=== PATIENT | male | born 1965 | race Caucasian/White ===

== ENCOUNTER 2017-01-25 11:37 | Emergency (ER) | payer BC ==
[2017-01-25] MEDS ORDERED: Bupivacaine 0.5% 30 ML SDV INFILT ONE (11:38)
--- NOTE | 2017-01-25 12:05 | EDM.PDOC ---
ED HPI GENERAL MEDICAL PROBLEM - General Chief Complaint: Upper Extremity Injury/Pain Stated Complaint: RT THUMB Time Seen by Provider: 01/25/17 11:44 Source of Information: Reports: Patient History Limitations: Reports: No Limitations - History of Present Illness INITIAL COMMENTS - FREE TEXT/NARRATIVE: 51 y.o.w.m came to the ed 1 week after he injured his r thumb. Mechanism of injury is not known. Limited ROM of r thumb due to pain and swelling, no other acute medical issues at this time, no DM. 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 - Related Data Allergies Allergy/AdvReac Type Severity Reaction Status Date / Time No Known Allergies Allergy Verified 01/25/17 11:42 Home Meds: Home Meds Acetaminophen/HYDROcodone [Beryl 325-5 MG] 1 tab PO Q4H PRN #16 tablet 01/25/17 [Rx] Cephalexin [Keflex] 500 mg PO Q6HR #40 capsule 01/25/17 [Rx] Ibuprofen 600 mg PO ASDIRECTED PRN 01/25/17 [History] Past Medical History - Past Health History Medical/Surgical History: Denies Medical/Surgical History Social & Family History - Tobacco Use Smoking Status *Q: Never Smoker - Recreational Drug Use Recreational Drug Use: No Review of Systems - Review of Systems Review Of Systems: See Below Constitutional: Reports: No Symptoms Eyes: Reports: No Symptoms Ears: Reports: No Symptoms Nose: Reports: No Symptoms Mouth/Throat: Reports: No Symptoms Respiratory: Reports: No Symptoms Cardiovascular: Reports: No Symptoms GI/Abdominal: Reports: No Symptoms ED EXAM, GENERAL - Physical Exam Exam: See Below Exam Limited By: No Limitations General Appearance: Alert, WD/WN, Mild Distress Eye Exam: Bilateral Eye: Normal Inspection Ears: Normal External Exam Ear Exam: Bilateral Ear: Auricle Normal Nose: Normal Inspection, Normal Mucosa, No Blood Throat/Mouth: Normal Inspection, Normal Lips Head: Atraumatic, Normocephalic Neck: Normal Inspection, Supple, Non-Tender Respiratory/Chest: No Respiratory Distress, Lungs Clear, Normal Breath Sounds Cardiovascular: Normal Peripheral Pulses Peripheral Pulses: 1+: Radial (L), Radial (R) GI/Abdominal: Normal Bowel Sounds, Soft, Non-Tender (Male) Exam: Deferred Rectal (Males) Exam: Deferred Back Exam: Normal Inspection, Full Range of Motion Extremities: Other (r thump pain/swelling, Paranychium) Neurological: Alert, Oriented, CN II-XII Intact, Normal Cognition, Normal Gait Psychiatric: Normal Affect, Normal Mood Skin Exam: Warm, Dry, Rash (paronychium) Lymphatic: No Adenopathy Course - Vital Signs Text/Narrative:: 51 y.o.w.m came to the ed 1 week after he injured his r thumb. Mechanism of injury is not known. Limited ROM of r thumb due to pain and swelling, no other acute medical issues at this time, no DM. PE: Right thump Paronychia Procedure: Digital block r thump. elevated nail bed till pus extruded. pain improved, no complications, Gram stain/Cx were sent. An iodine gaze was placed to keep the wound open. Tetanus immunization was addressed: (?)TD was not given. I called the pt at home to make sure he will get TD immunized in next 72 hours. Impression: Paronychium Tx: I&D and Abx, Cx pending Reexam: Improved Plan: D/C with instructions Last Recorded V/S: Last Vital Signs Temp 36.4 C 01/25/17 11:44 Pulse 65 01/25/17 12:40 Resp 14 01/25/17 11:44 BP 145/78 H 01/25/17 12:40 Pulse Ox 99 01/25/17 11:44 - Orders/Labs/Meds Orders: Active Orders 24 hr Category Date Time Status CULTURE ANAEROBIC [RM] Routine Lab 01/25/17 12:15 Results CULTURE ROUTINE + SMEAR [RM] Routine Lab 01/25/17 12:15 Results Departure - Departure Time of Disposition: 12:32 Disposition: Home, Self-Care 01 Condition: Good Clinical Impression: Paronychia of finger of right hand - Discharge Information Prescriptions: Cephalexin [Keflex] 500 mg PO Q6HR #40 capsule Acetaminophen/HYDROcodone [Beryl 325-5 MG] 1 tab PO Q4H PRN #16 tablet PRN Reason: severe pain Referrals: PCP,None [Primary Care Provider] - Forms: ED Department Discharge Additional Instructions: Please take the meds as recommended, please follow up for wound care in next 24 hours please come back if your symptoms get worse acutely - My Orders Last 24 Hours: My Active Orders 01/25/17 12:15 CULTURE ANAEROBIC [RM] Routine CULTURE ROUTINE + SMEAR [RM] Routine - Assessment/Plan Last 24 Hours: My Active Orders 01/25/17 12:15 CULTURE ANAEROBIC [RM] Routine CULTURE ROUTINE + SMEAR [RM] Routine
== END 2017-01-25 12:45 | disposition home or self-care (01) ==
LOC: FB.ED 11:37
DX: L03.011 Cellulitis of right finger (principal)
CPT/HCPCS: 64450; 87070; 87075; 87205; 99284